=== PATIENT | male | born 1980 | race Caucasian/White ===

== ENCOUNTER 2017-01-06 11:33 | Emergency (ER) | payer OTHER ==
[2017-01-06 11:39] VITALS: BP 121/88; PULSE 70; TEMP 98; BMI 26.6
--- NOTE | 2017-01-06 12:26 | PDOC ---
History of Present Illness - General Chief Complaint: Eye Problem Stated Complaint: SWOLLEN EYES Time Seen by Provider: 01/06/17 12:25 - History of Present Illness Initial Comments: 01/06/17 12:35 My chief complaint: My eyes are very swollen. Pt is a 36-year-old male with no past medical history presents to the ED complaining of swelling of his eyes. Patient states that his eyes have been swollen yesterday but when he woke up this morning they were swelled shut. He was able to use a warm compress to open his eyes. Patient believes there were "crusties" in his eyes. Patient also states that he had some redness to his eyes. Patient does not wear glasses or contacts. Works as a ready mix truck driver, and does not have any known irritants to his eyes. Admits to dry itchy eyes, rhinorrhea, sneezing, and congestion. Patient states he does not have a history of seasonal allergies. Denies fevers, chills, recent illness, ear pain, cough, nausea, vomiting and diarrhea. Past History - Travel Traveled outside of the country in the last 30 days: No Close contact w/someone who was outside of country & ill: No - Past Medical History Allergies/Adverse Reactions: Allergies Allergy/AdvReac Type Severity Reaction Status Date / Time No Known Allergies Allergy Verified 01/06/17 11:39 Home Medications: Ambulatory Orders Ketotifen Fumarate [Allergy Eye Drops] 10 ml OU BID #2 drops 01/06/17 - Psycho/Social/Smoking Cessation Hx Suicidal Ideation: No Smoking History: Never smoked Information on smoking cessation initiated: No Review of Systems - Review of Systems Constitutional: No: Chills, Fever, Weakness HEENTM: Yes: Tearing, Nose Congestion. No: Eye Pain, Blurred Vision, Recent change in vision, Double Vision, Ear Pain, Ear Discharge, Nose Pain, Throat Pain , Throat Swelling Respiratory: No: Cough Integumentary: Yes: Pruritus (Eyes), Other (Swollen eye lids b/l). No: Rash *Physical Exam - Vital Signs Last Vital Signs Temp Pulse Resp BP Pulse Ox 98 F 70 18 121/88 99 01/06/17 11:36 01/06/17 11:36 01/06/17 11:36 01/06/17 11:36 01/06/17 11:36 - Physical Exam General Appearance: Yes: Nourished, Appropriately Dressed. No: Apparent Distress HEENT: positive: EOMI, AB, Normal Voice, Pharynx Normal, Photophobia, Nasal Congestion, Rhinorrhea, TM Dull (Landmarks dull b/l, decreased cone of light), Other (diffuse conjunctivitis b/l). negative: Pharyngeal Erythema, Tonsillar Exudate, Tonsillar Erythema, Sinus Tenderness, TM Bulging, TM Erythema Neck: positive: Trachea midline, Supple. negative: Tender, Rigid, Lymphadenopathy (R), Lymphadenopathy (L) Respiratory/Chest: positive: Lungs Clear, Normal Breath Sounds. negative: Respiratory Distress, Accessory Muscle Use, Rhonchi, Stridor, Wheezing Cardiovascular: positive: Regular Rhythm, Regular Rate, S1, S2 (present). negative: Murmur (no rubs or gallops) Medical Decision Making - Medical Decision Making 01/06/17 12:43 Patient is a 36-year-old male with a chief complaint of eye swelling. Patient's symptoms are consistent with allergic rhinitis and allergic conjunctivitis. No signs of acute bacterial infection. Advised patient to use warm compresses on his eyes 2-4 times a day to help with the swelling. Also recommend patient start taking Zyrtec once daily. We'll prescribe Zaditor eyedrops to help with the itching. We will discharge home at this time. Patient understands all discharge instructions and all questions were answered. *DC/Admit/Observation/Transfer Diagnosis at time of Disposition: Allergic rhinitis Qualifiers: Allergic rhinitis trigger: other Allergic rhinitis seasonality: unspecified seasonality Qualified Code(s): J30.89 - Other allergic rhinitis - Discharge Dispostion Admit: No - Prescriptions Prescriptions: Ketotifen Fumarate [Allergy Eye Drops] 10 ml OU BID #2 drops - Referrals Referrals: Sasha Vital [Primary Care Provider] - - Patient Instructions Printed Discharge Instructions: DI for Allergic Rhinitis Additional Instructions: You have seasonal allergies which are causing your swollen eyes. You were prescribed Zaditor drops. Use this daily to help with the itching and swelling. You may use cool compresses on your eyes to help with the itching as well. Start taking Zyrtec daily to help with you symptoms. Zyrtec works best when you take it every day at the same time and the effects of the medication increase when it is taken this way. You may take Tylenol or Motrin as needed for pain. Return to the ED if you have changes in your vision, have increasing headaches, fevers or chills, or any changes in your symptoms, return to the ED. Print Language: YAKUT - Post Discharge Activity Work/School Note: Back to Work, Parent(s) Back to Work Note
[2017-01-06] MEDS ORDERED: LORATADINE 10 MG TABLET PO ONE (12:45)
[2017-01-06] MEDS ORDERED: LORATADINE 10 MG TABLET ONE (12:54)
== END 2017-01-06 13:05 | disposition home or self-care (01) ==
LOC: EDBD → JERFT 11:33
DX: J30.89 Other allergic rhinitis (principal)
CPT/HCPCS: 99281-25

== ENCOUNTER 2017-09-20 08:47 | Emergency (ER) | payer OTHER ==
[2017-09-20 09:02] VITALS: BP 136/88; PULSE 68; TEMP 98.4; BMI 27.1
--- NOTE | 2017-09-20 09:40 | PDOC ---
History of Present Illness - General Chief Complaint: Cold Symptoms Stated Complaint: COUGH, BACK PAIN Time Seen by Provider: 09/20/17 09:12 History Source: Patient Exam Limitations: Language Barrier ( at bedside to translate) - History of Present Illness Initial Comments: 09/20/17 09:38 Patient is a [37-year-old male who presents with nasal congestion and coughing since last night. No fever. No respiratory difficulty, cough is nonproductive. Received patient with no coughing, denies chest pain, no shortness of breath. No vomiting. with influenza-type illness.] Past Medical History: [Denies]. Allergies: No known allergies Medications: [None] Family History: Non-contributory Social History: Denies smoking, alcohol use, or IVDU Vital signs on arrival are [notable for pulse of 96.] Review of Systems GENERAL/CONSTITUTIONAL: [No fever or chills. No weakness. No weight change.] HEAD, EYES, EARS, NOSE AND THROAT: [No change in vision. No ear pain or discharge. No sore throat. Nasal congestion ] CARDIOVASCULAR: [No chest pain or shortness of breath.] RESPIRATORY: [Nonproductive cough, no wheezing, or hemoptysis.] GASTROINTESTINAL: [No nausea, vomiting, diarrhea or constipation. No rectal bleeding.] GENITOURINARY: [No dysuria, frequency, or change in urination.] MUSCULOSKELETAL: [No joint or muscle swelling or pain. No neck or back pain.] SKIN AND BREASTS: [No rash or easy bruising.] NEUROLOGIC: [No headache, vertigo, loss of consciousness, or loss of sensation.] PSYCHIATRIC: [No depression or anxiety.] ENDOCRINE: [No increased thirst. No abnormal weight change.] HEMATOLOGIC/LYMPHATIC: [No anemia, easy bleeding, or history of blood clots.] ALLERGIC/IMMUNOLOGIC: [No hives or skin allergy. No latex allergy.] Physical Exam: GENERAL: [The patient is awake, alert, and fully oriented, in no acute distress. ] EYES: [Pupils equal, round and reactive to light, extraocular movements intact, sclera anicteric, conjunctiva clear.] ENT: [Ears normal, nares patent, no sinus pressure or pain, oropharynx clear without exudates. Moist mucous membranes. No uvula deviation] NECK: [Normal range of motion, supple without lymphadenopathy, JVD, or masses.] LUNGS: [Breath sounds equal, clear to auscultation bilaterally. No wheezes, and no crackles.] HEART: [Regular rate and rhythm, normal S1 and S2 without murmur, rub or gallop. ] ABDOMEN: [Soft, nontender, normoactive bowel sounds. No guarding, no rebound. No masses. No bruising or abrasions] MUSCULOSKELETAL: [Normal range of motion, no edema. No clubbing or cyanosis. No cords, erythema, or tenderness. No CVA Tenderness with fist.] NEUROLOGICAL: [Cranial nerves II through XII grossly intact. Normal speech, normal gait.] SKIN: [Warm, Dry, normal turgor, no rashes or lesions noted.] 09/20/17 10:21 Past History - Past Medical History Allergies/Adverse Reactions: Allergies Allergy/AdvReac Type Severity Reaction Status Date / Time No Known Allergies Allergy Verified 09/20/17 08:59 Home Medications: Ambulatory Orders NK [No Known Home Medication] 09/20/17 COPD: No - Immunization History Immunization Up to Date: Yes - Suicide/Smoking/Psychosocial Hx Smoking History: Never smoked *Physical Exam - Vital Signs Last Vital Signs Temp Pulse Resp BP Pulse Ox 98.4 F 68 18 136/88 100 09/20/17 08:59 09/20/17 08:59 09/20/17 08:59 09/20/17 08:59 09/20/17 08:59 Medical Decision Making - Medical Decision Making 09/20/17 09:38 A/P: Patient here for nasal congestion,, back pain which is chronic. Patient with no fever, vital signs are stable, patient breathing comfortably. There is no evidence of a sinusitis. I will discharge patient home, supportive care, over -the-counter nasal congestion remedies. Patient with, cold-like symptoms. To follow-up with primary care doctor. If any dizziness, inability to drink, respiratory difficulty, or any other concerns may return back to ER *DC/Admit/Observation/Transfer Diagnosis at time of Disposition: Nasal congestion - Discharge Dispostion Disposition: HOME Condition at time of disposition: Stable Admit: No - Referrals - Patient Instructions Printed Discharge Instructions: DI for Common Cold Additional Instructions: Keep head of bed elevated 45 when sleeping If uncontrolled fever, respiratory difficulty, headache, dizziness, inability to drink or other concerns return immediately to ER Cool air humidifier Motrin for fever greater than 101 Followup in the primary care doctor's office in 2 days for evaluation. - Post Discharge Activity Forms/Work/School Notes: Back to Work
== END 2017-09-20 10:20 | disposition home or self-care (01) ==
LOC: JERFT 08:47
DX: J00 Acute nasopharyngitis [common cold] (principal)
CPT/HCPCS: 99281-25